=== PATIENT | female | born 1980 | race Asian ===

== ENCOUNTER 2016-06-28 10:34 | Day surgery (SDC) | payer BC ==
[~2016-06-28 10:34] MED LIST: FOLIC ACID1 M1 PO; PRENATAL FORMU1 EAC2 PO; SYNTHROID50 MC1 PO
[2016-06-28 11:42] LABS: HCT-HEMATOCRIT 36.9 % (34.0-49.0); HGB-HEMOGLOBIN 12.5 gm/dl (12.0-15.5); MCV (MEAN CELL VOLUME) 85.6 fl (82.0-96.0); RED CELL DISTRIBUTION WIDTH 12.1 % (12.4-16.4)
== END 2016-06-28 15:05 ==
LOC: SHSB 10:34 → ORW 12:56 → PACU 13:13 → SHSB 13:50
PROVIDERS: Obstetrics & Gynecology
PROC: 10D17ZZ Extraction of Products of Conception, Retained, Via Natural or Artificial Opening (ICD-10-PCS; principal; 2016-06-28)
DX: O02.1 Missed abortion (principal); E03.9 Hypothyroidism, unspecified; Z79.899 Other long term (current) drug therapy; Z98.890 Other specified postprocedural states